=== PATIENT | female | born 1965 | race Hispanic/Latino ===

== ENCOUNTER 2021-07-09 15:30 | Emergency (ER) | payer SELFPAY ==
[2021-07-09] MEDS ORDERED: KETOROLAC 30 MG/ML INJ ONE (16:15)
--- OUTSIDE RECORDS SUMMARY | 2021-07-09 16:29 | XMS REPORT | Continuity of Care Document ---
:1965 Author Organization [facility] t Address [address] [place] [address] Care Team Providers Name Role Phone BENSON Attending Clinician Unavailable DR CARY Attending Clinician Unavailable BENSON Admitting Clinician Unavailable DR CARY Admitting Clinician Unavailable Payers Payer Name Policy Type Policy Number Effective Date Expiration Date S ource Problems Condition Condition Condition Status Onset Resolution Last Treating Co mments Source Name Details Category Date Date Treatment Clinician Date Malignant Malignant Problem Active [place] tumor of Tumor of 3-14 da breast Breast 00:00: [facility] Allergies, Adverse Reactions, Alerts This patient has no known allergies or adverse reactions. Social History Smoking Status Start Date Stop Date Source Never Smoker [facility] Medications Ordered Filled Start Stop Current Ordering Indication Dosage Frequency Signature Comments Components Source Medication Medication Date Date Medication? Clinician (SIG) Name Name prednisone prednisone No prednisone [place] 20 mg 20 mg 20 mg da tablet 60mg tablet 60mg tablet [facility] for 3 days, for 3 days, 60mg for 3 al 40mg for 3 40mg for 3 days, 40mg Health days, 20mg days, 20mg for 3 Ou treac for 3 days for 3 days days, 20mg h and 10mg and 10mg for 3 days P rogram for 3 days. for 3 days. and 10mg for 3 days. Vital Signs Vital Name Observation Time Observation Value Comments Source BP Diastolic 2019-07-11 00:00:00 94 mm[Hg] [facility] Height 2019-07-11 00:00:00 63 [facility] BMI (Body Mass 2019-07-11 00:00:00 26.7 kg/m2 [facility] of information [employer] [facility]) [facility] BP Systolic 2019-07-11 00:00:00 148 [facility]Hg[facility] Body Weight 2019-07-11 00:00:00 151 [facility]_av[facility] Procedures This patient has no known procedures. Plan of Care Planned Activity Planned Date Details Comments Source Diagnostic Test 2019-07-12 RPR (rapid plasma [place] [facility] Pending 00:00:00 reagin), serum Health Outrea ch [code = RPR (rapid Program plasma reagin), serum] Encounters Start End Encounter Admission Attending Care Care Encounter Source Date/Time Date/Time Type Type Clinicians Facility Department ID 2019-07-11 2019-07-11 Outpatient [facility] [id number] [place] 03:30:00 03:30:00 _[facility] 2019-07-11 2019-07-11 Flori A MAKEVAN [place] - [id number] 4 [place] 00:00:00 00:00:00 Veronica Plasencia PIPE PULLER: [address] [facility] SHADI [place], [facility] [id number] h , Ph. Program Results Test Description Test Time Test Comments Results Result Comments Source URINE CULTURE 2016-12-18 08:42:00 Test Item Value Reference Range Interpretation Comme nts Isolate 1 (test code = ISO1) Escherichia coli A ampicillin (test code = am) ug/mL R piperacillin/tazobactam (test code = tzp) ug/mL S cefazolin (test code = cz) ug/mL S ceftazidime (test code = shan) ug/mL S ceftriaxone1 (test code = ctr) ug/mL S cefepime (test code = fep) ug/mL S aztreonam (test code = azm) ug/mL S ertapenem (test code = etp) ug/mL S meropenem (test code = mem) ug/mL S gentamicin (test code = gm) ug/mL S tobramycin (test code = tob) ug/mL S levofloxacin (test code = lev) ug/mL S nitrofurantoin (test code = ftn) ug/mL S trimethoprim/sulfamethoxazole (test code = sxt) ug/mL R ALCOHOL BLOOD (ETOH) 2016-12-16 14:35:00 Test Item Value Reference Range Interpretation Comments ALCOHOL (test code = <10 mg/dL <=10 56A) Ref Range Change (test Please note the code = REF RANGE) change in reference range SALICYLATES WW2016-12-16 14:25:00 Test Item Value Reference Range Interpretation Comments SALICYLATE (test code = 94B) 4.7 mg/dL 2.8-20.0 ACETAMINOPHEN *WW*2016-12-16 14:24:00 Test Item Value Reference Range Interpretation Comments ACETAMINPH (test code = 94M) <2.0 ug/mL 10.0-30.0 L THYROID PANEL/SCREEN (TSH) *WW*2016-12-16 14:23:00 Test Item Value Reference Range Interpretation Comments TSH (test code = WTSH) 0.823 uIU/mL 0.358-3.740 COMPREHENSIVE METABOLIC CHAUDHARI *WW*2016-12-16 14:22:00 Test Item Value Reference Range Interpretation Comments GLUCOSE (test code = 06D) 97 mg/dL 75-100 SODIUM (test code = 01A) 137 mmol/L 136-145 POTASSIUM (test code = 01B) 3.6 mmol/L 3.6-5.1 CHLORIDE (test code = 04A) 102 mmol/L 98-107 CO2 (test code = 02A) 26 mmol/L 22-32 ANION GAP (test code = ANG) 12.6 mmol/L BUN (test code = 05D) 5 mg/dL 7-18 L CREATININE (test code = 03E) 0.8 mg/dL 0.4-1.1 BUN/CREA (test code = BCR) 6 12-20 L CALCIUM (test code = 09D) 9.1 mg/dL 8.3-9.5 BILI TOTAL (test code = 11A) 0.6 mg/dL 0.2-1.0 PROTEIN (test code = 07D) 8.6 g/dL 6.4-8.2 H ALBUMIN (test code = 08D) 4.5 g/dL 3.5-4.8 GLOBULIN (test code = GLB) 4.1 g/dL 1.5-3.8 H ALB/GLOB (test code = AGRR) 1.1 1.0-2.6 ALK PHOS (test code = 35A) 96 IU/L 42-121 AST (test code = 30A) 24 IU/L <=42 ALT (test code = 31A) 24 IU/L <=78 CARDIAC PROFILE *WW*2016-12-16 14:13:00 Test Item Value Reference Range Interpretation Comments TROPONIN I (test code = A84) <0.015 ng/mL 0.000-0.045 CKMB (test code = A49) 6.8 ng/mL <=3.6 HH CPK (test code = 32A) 346 IU/L 26-192 H PRO TIME AND PTT *WW*2016-12-16 14:08:00 Test Item Value Reference Range Interpretation Comments PT (test code = 12.2 s 9.8-13.6 TT) INR (test code = 1.1 INR) INRH (test code = SUGGESTED INRH) THERAPEUTIC RANGE FOR INR: 2.5 - 3.5 For Patients with Prosthetic Valves or Patients with recurrent Thromboembolic Events 2.0 - 3.0 For Most Other Applications PTT (test code = 29.0 s 20.2-38.0 PTT) PTTH (test code = To monitor the PTTH) effectiveness of heparin, we offer the Anti-Xa (Heparin Assay). It can be used for either unfractionated or LMW Heparin. Order Code is ANTI-XA AMYLASE AND LIPASE *WW*2016-12-16 14:06:00 Test Item Value Reference Range Interpretation Comments AMYLASE (test code = 10A) 47 U/L 28-100 LIPASE (test code = 60A) 129 IU/L 73-393 DRUGS OF ABUSE *WW*2016-12-16 14:05:00 Test Item Value Reference Range Interpretation Comments DRUG SCRN (test code URINE DRUG SCREEN = HDOA) This is an unconfirmed screening result and should not be used for non-medical purposes CANNABINOD (test code Negative NEGATIVE = 88C) AMPHETAMINE (test Negative NEGATIVE code = 84A) BENZODIAZP (test code Negative NEGATIVE = 86A) BARBITURAT (test code Negative NEGATIVE = 85A) OPIATES (test code = Negative NEGATIVE 92B) COCAINE (test code = POSITIVE NEGATIVE A 87A) PHENCYCLID (test code Negative NEGATIVE = 66A) METHADONE (test code Negative NEGATIVE = 64A) DOAH (test code = DOAH) *URINE DRUG SCREEN Cut-off values are as follows: Cannabinoids 50 ng/mL Cocaine 300 ng/mL Amphetamines 1000 ng/mL Phencyclidine 25 ng/mL Benzodiazepines 200 ng.mL Methadone 300 ng/mL Barbiturates 200 ng/mL Opiates 2000 ng/mL URINALYSIS WITH MICRO *WW*2016-12-16 14:00:00 Test Item Value Reference Range Interpretation Comments COLOR (test code = COLU) YELLOW YELLOW CLARITY (test code = CLA) SLT HAZY CLEAR A GLUCOSE UR (test code = UA NEGATIVE NEGATIVE GLUCOSE) BILI UR (test code = BILE) NEGATIVE NEGATIVE KETONES UR (test code = MIRIAM) NEGATIVE NEGATIVE SP GRAVITY (test code = SPGR) <=1.005 1.005-1.030 PH UR (test code = PH) 6.5 4.5-8.0 PROTEIN UR (test code = PU) NEGATIVE NEGATIVE UROBIL UR (test code = UROQ) 0.2 EU/dL 0.2-1.0 NITRITE UR (test code = NEGATIVE NEGATIVE NITRITE) BLOOD UR (test code = UA BLOOD) TRACE-INTACT NEGATIVE A LEUK ES UR (test code = LEUK) 3+ NEGATIVE A WBC UR (test code = UWBC) 20 /HPF 0-5 H RBC UR (test code = URBC) 8 /HPF 0-2 H EPITH UR (test code = UEPC) MODERATE /LPF FEW A BACTERIA UR (test code = UBACT) MANY /HPF NONE A CAST UR (test code = CAST) /LPF NONE CRYSTAL UR (test code = CRYU) / LPF NONE MUCUS UR (test code = MUC) / HPF NONE AMORPH UR (test code = FANNY) / HPF NONE TRICH UR (test code = UTRICH) /HPF NONE YEAST UR (test code = UY) /HPF NONE SPERM UR (test code = USPERM) /HPF NONE CBC (INCLUDES AUTOMATED DIFFERENTIAL)*[id number] 13:55:00 Test Item Value Reference Range Interpretation Comments WBC (test code = WBC) 11.9 10\S\3/uL 4.5-11.0 H RBC (test code = RBC) 4.55 10\S\6/uL 4.20-5.60 HGB (test code = HBG) 14.8 g/dL 12.0-15.5 HCT (test code = HCT) 41.9 % 35.0-44.0 MCV (test code = MCV) 92.1 fL 81.0-99.0 MCH (test code = MCH) 32.5 pg 27.0-31.0 H MCHC (test code = MCHC) 35.3 g/dL 32.0-36.0 RDW (test code = RDW) 12.1 % 11.5-14.5 PLT (test code = PLT) 204 10\S\3/uL 130-400 MPV (test code = MPV) 11.5 fL 9.4-12.4 NEUTROP # (test code = NE#) 8.7 10\S\3/uL 1.6-8.0 H LYMPH # (test code = LY#) 2.1 10\S\3/uL 1.1-3.5 MONOCYTE # (test code = MO#) 0.9 10\S\3/uL 0.0-1.1 EOSINOPH # (test code = EO#) 0.0 10\S\3/uL 0.0-0.7 BASOPHIL # (test code = BA#) 0.1 10\S\3/uL 0.0-0.3 IG # (test code = IG#) 0.07 10\S\3/uL 0.00-0.06 H NRBC # (test code = NRBC#) 0.00 10\S\3/uL 0.00-0.01 NEUTROPH % (test code = NE%) 73.3 % 35.0-73.0 H LYMPH % (test code = LY%) 17.4 % 20.0-55.0 L MONO % (test code = MO%) 7.8 % 2.5-10.0 EOSINOPH % (test code = EO%) 0.3 % 0.0-5.0 BASOPHIL % (test code = BA%) 0.6 % 0.0-2.0 IG % (test code = IG%) 0.6 % 0.0-0.8 NRBC% (test code = NRBC%) 0.0 % 0.0-0.2 MANDIFF (test code = WMDIFF) NO NO RBC MORPH (test code = NORMAL WRBCMOR)
--- NOTE | 2021-07-09 17:28 | RAD REPORT ---
EXAM DESCRIPTION: CT - Head Brain Wo Cont - 07/09/2021 5:19 pm CLINICAL HISTORY: PAIN COMPARISON: Facial Bones W/ Mpr dated 07/09/2021 TECHNIQUE: All CT scans are performed using dose optimization technique as appropriate and may inclu de automated exposure control or mA/KV adjustment according to patient size. FINDINGS: No intracranial hemorrhage, hydrocephalus or extra-axial fluid collection.No areas of brai n edema or evidence of midline shift. Trace right mastoid effusion. The calvarium is intact. Right forehead hematoma. IMPRESSION: No acute intracranial abnormality.
--- NOTE | 2021-07-09 17:30 | RAD REPORT ---
EXAM DESCRIPTION: CT - CTFB CLINICAL HISTORY: FACIAL PAIN COMPARISON: No comparisons TECHNIQUE: Axial 2 mm thick images of the face were obtained with sagittal and coronal reconstructio n images. All CT scans are performed using dose optimization technique as appropriate and may include automated exposure control or mA/KV adjustment according to patient size. FINDINGS: No acute facial bone fracture is seen.The mandible is intact. The globes and orbital contents are grossly unremarkable.The paranasal sinuses and mastoids are clear . Right forehead hematoma. IMPRESSION: Negative for facial bone fracture.
--- NOTE | 2021-07-09 17:43 | EDPHYS ---
Physician Documentation [facility] Name: Dot Pena Age: 55 yrs Sex: Female : 1965 Arrival Date: 07/09/2021 Time: 15:33 Bed 11 Private MD: ED Physician Jean Carlos Amin HPI: 07/09 16:05 This 55 yrs old Female presents to ER via Ambulatory with complaints of Fall pm1 Injury. 16:06 Details of fall: The patient fell from an upright position, while walking. Onset: The pm1 symptoms/episode began/occurred yesterday. Associated injuries: The patient sustained injury to the head, contusion, pain, swelling, right side of face. Severity of symptoms: in the emergency department the symptoms are unchanged. The patient has not experienced similar symptoms in the past. The patient has not recently seen a physician. Patient drank alcohol last night and fell asleep on the couch. Patient got up to go to restroom and fell on her right side of face. Patient presented with pain to right eye area and forehead. Negative for chest pain, shortness of breath, nausea vomiting diarrhea. Historical: - Allergies: 15:54 No Known Allergies; ww - Home Meds: 15:54 None [Active]; ww - PMHx: 15:54 breast cancer- right; ww - PSHx: 15:54 masectomy; ww - Immunization history: Last tetanus immunization: > 10 years ago. - Social history:: Smoking status: Patient denies any tobacco usage or history of. Patient uses alcohol, occasionally. ROS: 16:06 Constitutional: Negative for fever, chills, and weight loss. pm1 16:06 ENT: Negative for injury, pain, and discharge, Neck: Negative for injury, pain, and swelling, Cardiovascular: Negative for chest pain, palpitations, and edema, Respiratory: Negative for shortness of breath, cough, wheezing, and pleuritic chest pain, Abdomen/GI: Negative for abdominal pain, nausea, vomiting, diarrhea, and constipation, Back: Negative for injury and pain, MS/Extremity: Negative for injury and deformity, Skin: Negative for injury, rash, and discoloration, Neuro: Negative for headache, weakness, numbness, tingling, and seizure. 16:06 Eyes: Positive for pain, swelling, of the right eye. 16:06 All other systems are negative. Exam: 16:06 Constitutional: This is a well developed, well nourished patient who is awake, alert, pm1 and in no acute distress. 16:06 Back: No spinal tenderness. No costovertebral tenderness. Full range of motion. Skin: Warm, dry with normal turgor. Normal color with no rashes, no lesions, and no evidence of cellulitis. MS/ Extremity: Pulses equal, no cyanosis. Neurovascular intact. Full, normal range of motion. 16:06 Head/face: Noted is no obvious of injury or deformity except contusion, that is superficial, of the right eye, swelling, that is mild, of the right eye. 16:06 Eyes: Exam is negative for Periorbital structures: contusion, that is mild, on the inner aspect of right eyebrow, middle aspect of right eyebrow, outer aspect of right eyebrow, right supraorbital ridge, right upper eyelid and right lower eyelid, Pupils: no acute changes, Extraocular movements: no acute changes, Conjunctiva: no acute changes, no injection. 16:06 ENT: Exam is negative for acute changes, Mouth: no acute changes, Lips: normal, moist, Oral mucosa: normal, pink and intact, moist, Posterior pharynx: no acute changes. 16:06 Neck: Exam negative for External neck: no acute changes, C-spine: vertebral tenderness, is not appreciated. 16:06 Cardiovascular: Rate: normal, Rhythm: regular, Pulses: no pulse deficits are appreciated. 16:06 Respiratory: Exam negative for acute changes, respiratory distress, shortness of breath, Breath sounds: are clear throughout. 16:06 Abdomen/GI: Exam negative for acute changes, Inspection: abdomen appears normal, Palpation: abdomen is soft and non-tender, in all quadrants. 16:06 Neuro: Exam negative for acute changes, Orientation: is normal, Motor: is normal, moves all fours. Vital Signs: 15:48 BP 110 / 62; Pulse 88; Resp 18; Temp 99.0; Pulse Ox 100% ; Weight 63.5 kg; Height 5 ft. ww 3 in. (160.02 cm); Pain 9/10; 17:42 BP 107 / 61; Pulse 90; Resp 16; Pulse Ox 99% on R/A; ab2 15:48 Body Mass Index 24.80 (63.50 kg, 160.02 cm) Tejal Coma Score: 15:48 Eye Response: spontaneous(4). Verbal Response: oriented(5). Motor Response: obeys ww commands(6). Total: 15. 17:42 Eye Response: spontaneous(4). Verbal Response: oriented(5). Motor Response: obeys ab2 commands(6). Total: 15. Trauma Score (Adult): 15:48 Eye Response: spontaneous(1); Verbal Response: oriented(1); Motor Response: obeys ww commands(2); Systolic BP: > 89 mm Hg(4); Respiratory Rate: 10 to 29 per min(4); Orrum Score: 15; Trauma Score: 12 MDM: 16:00 Patient medically screened. pm1 17:26 Data reviewed: vital signs. Data interpreted: Pulse oximetry: on room air is 100 %. pm1 Interpretation: normal. 17:42 Counseling: I had a detailed discussion with the patient and/or guardian regarding: the pm1 historical points, exam findings, and any diagnostic results supporting the discharge/admit diagnosis, lab results, radiology results, the need for outpatient follow up, a family practitioner, to return to the emergency department if symptoms worsen or persist or if there are any questions or concerns that arise at home. 07/09 16:04 Order name: CT Head Brain wo Cont; Complete Time: 17:42 pm1 07/09 16:04 Order name: Facial Bones W/O Con CT; Complete Time: 17:42 pm1 Administered Medications: 16:05 CANCELLED (Physician Discretion): Ketorolac 30 mg IM once pm1 16:16 Drug: Ketorolac 60 mg Route: IM; Site: left ventrogluteal; ab2 17:44 Follow up: Response: No adverse reaction; Pain is decreased ab2 Disposition: 18:30 Co-signature as Attending Physician, Jean Carlos Amin MD I agree with the assessment and sharonda plan of care. Disposition Summary: 07/09/21 17:43 Discharge Ordered Location: Home pm1 Problem: new pm1 Symptoms: have improved pm1 Condition: Stable pm1 Diagnosis - Contusion of other part of head - right forehead contusion pm1 - Fall on same level, unspecified pm1 Followup: pm1 - With: Emergency Department - When: As needed - Reason: Worsening of condition Followup: pm1 - With: Private Physician - When: 2 - 3 days - Reason: Recheck today's complaints, Continuance of care, Re-evaluation by your physician Discharge Instructions: - Discharge Summary Sheet pm1 - Facial or Scalp Contusion pm1 - Fall Prevention in the Home, Adult pm1 Forms: - Medication Reconciliation Form pm1 - Thank You Letter pm1 - Antibiotic Education pm1 - Prescription Opioid Use pm1 Prescriptions: - Diclofenac Sodium 75 mg Oral tablet,delayed release (DR/EC) - take 1 tablet by ORAL route 2 times per day As needed; 30 tablet; Refills: 0, pm1 Product Selection Permitted Signatures: Dispatcher [employer] EDJean Carlos Landaverde MD MD cha Marinas, Patrick, MUSEUM HOST/HOSTESS MUSEUM HOST/HOSTESS pm1 Laura Browne RN RN Herve Cordova Corrections: (The following items were deleted from the chart) 15:55 15:54 PMHx: None; destiney cabello 16:05 16:04 Ketorolac 30 mg IM once ordered. pm1 pm1 17:26 17:26 Counseling: I had a detailed discussion with the patient and/or guardian pm1 regarding: the historical points, exam findings, and any diagnostic results supporting the discharge/admit diagnosis, lab results, radiology results, the need for outpatient follow up, for definitive care, a realtime court reporter, to return to the emergency department if symptoms worsen or persist or if there are any questions or concerns that arise at home, pm1
--- NOTE | 2021-07-09 17:43 | ER ---
Nurse's Notes [facility] Name: Dot Pena Age: 55 yrs Sex: Female : 1965 Arrival Date: 07/09/2021 Time: 15:33 Bed 11 Private MD: Diagnosis: Contusion of other part of head-right forehead contusion;Fall on same level, unspecified Presentation: 07/09 15:48 Chief complaint: Patient states: "Drunk last night and passed out on the couch and got ww up during the night to maybe go to the bathroom and fell". Patient fell on tile floor striking her right side of her face. Patient does not remember the fall or if the had any LOC. Complaining of headache and numbness to the right side of the face. Care prior to arrival: None. Mechanism of Injury: Fall from standing position. Trauma event details: Injury occurred: at home. Injury occurred: July 08, 2021. 15:48 Acuity: LEXIE 3 ww 15:48 Method Of Arrival: Ambulatory ww 15:54 Coronavirus screen: Client denies travel out of the [place] in the last 14 days. Ebola ww Screen: Patient denies travel to an Ebola-affected area in the 21 days before illness onset. Initial Sepsis Screen: Does the patient meet any 2 criteria? No. Patient's initial sepsis screen is negative. Does the patient have a suspected source of infection? No. Patient's initial sepsis screen is negative. Risk Assessment: Do you want to hurt yourself or someone else? Patient reports no desire to harm self or others. Onset of symptoms was July 08, 2021. Trauma Activation: Physician: ED Physician; Name: Brennan; Notified At: ; Arrived At: Physician: General Surgeon; Name: ; Notified At: ; Arrived At: Physician: Radiology; Name: ; Notified At: ; Arrived At: Physician: Respiratory; Name: ; Notified At: ; Arrived At: Physician: Lab; Name: ; Notified At: ; Arrived At: Historical: - Allergies: 15:54 No Known Allergies; ww - Home Meds: 15:54 None [Active]; ww - PMHx: 15:54 breast cancer- right; ww - PSHx: 15:54 masectomy; ww - Immunization history: Last tetanus immunization: > 10 years ago. - Social history:: Smoking status: Patient denies any tobacco usage or history of. Patient uses alcohol, occasionally. Screenin:48 Abuse screen: Denies threats or abuse. Denies injuries from another. Tuberculosis ww screening: No symptoms or risk factors identified. 16:18 Nutritional screening: No deficits noted. Fall Risk None identified. ab2 Primary Survey: 15:48 NO uncontrolled hemorrhage observed. A: The patient is alert. Breathing/Chest: ww Respiratory pattern: regular, Respiratory effort: spontaneous. Circulation: Heart tones present. Skin color: pink, Skin temperature: warm. Disability Alert. Exposure/Environment: Obvious injury(ies) are noted at this time: bruising and swelling to the right eye and forehead. 16:18 Reassessment Breathing/Chest Respiratory pattern Regular Respiratory effort Spontaneous ab2 Unlabored Breath sounds Clear Chest inspection Symmetrical. Assessment: 15:48 General: Appears in no apparent distress. Behavior is flat. Pain: Complains of pain in ww forehead, right eye, right cheek and right jaw. Neuro: Level of Consciousness is awake, alert, obeys commands, Oriented to person, place, time, situation, Gait is unsteady, Speech is normal. EENT: Lid(s) swelling to right eye lid. Cardiovascular: Patient's skin is warm and dry. Respiratory: Airway is patent Respiratory effort is even, unlabored, Respiratory pattern is regular, symmetrical. GI: No signs and/or symptoms were reported involving the gastrointestinal system. : No signs and/or symptoms were reported regarding the genitourinary system. 16:18 Derm: Bruising that is dark purple, on right eye. ab2 17:42 Reassessment: Patient appears in no apparent distress at this time. Pt resting in bed, ab2 awaiting results for ct. Pt denies any needs at this time. Vital Signs: 15:48 BP 110 / 62; Pulse 88; Resp 18; Temp 99.0; Pulse Ox 100% ; Weight 63.5 kg; Height 5 ft. ww 3 in. (160.02 cm); Pain 9/10; 17:42 BP 107 / 61; Pulse 90; Resp 16; Pulse Ox 99% on R/A; ab2 15:48 Body Mass Index 24.80 (63.50 kg, 160.02 cm) ww [place] Coma Score: 15:48 Eye Response: spontaneous(4). Verbal Response: oriented(5). Motor Response: obeys ww commands(6). Total: 15. 17:42 Eye Response: spontaneous(4). Verbal Response: oriented(5). Motor Response: obeys ab2 commands(6). Total: 15. Trauma Score (Adult): 15:48 Eye Response: spontaneous(1); Verbal Response: oriented(1); Motor Response: obeys ww commands(2); Systolic BP: > 89 mm Hg(4); Respiratory Rate: 10 to 29 per min(4); Tejal Score: 15; Trauma Score: 12 ED Course: 15:33 Patient arrived in ED. ds1 15:51 Triage completed. ww 15:54 Arm band placed on right wrist. ww 15:56 Tylor Casper NP is PHCP. pm1 15:56 Jean Carlos Amin MD is Attending Physician. pm1 16:12 Herve Hernandez is Primary Nurse. ab2 16:18 Patient has correct armband on for positive identification. Bed in low position. Call ab2 light in reach. Side rails up X2. Adult w/ patient. 16:18 No provider procedures requiring assistance completed. ab2 16:18 Patient maintains SpO2 saturation greater than 95% on room air. Thermoregulation: warm ab2 blanket given to patient. 17:18 Facial Bones W/O Con CT In Process Unspecified. EDMS 17:19 CT Head Brain wo Cont In Process Unspecified. EDMS 17:50 Patient did not have IV access during this emergency room visit. ww Administered Medications: 16:05 CANCELLED (Physician Discretion): Ketorolac 30 mg IM once pm1 16:16 Drug: Ketorolac 60 mg Route: IM; Site: left ventrogluteal; ab2 17:44 Follow up: Response: No adverse reaction; Pain is decreased ab2 Outcome: 17:43 Discharge ordered by MD. pm1 17:49 Discharged to home ambulatory, with family. ww 17:49 Condition: stable 17:50 Patient's length of stay was not longer than 2 hours. ww 17:50 Discharge instructions given to patient, Instructed on discharge instructions, follow ww up and referral plans. no drinking with medication, medication usage, safety practices, Demonstrated understanding of instructions, follow-up care, medications, Prescriptions given X 1. 17:51 Patient left the ED. ww Signatures: Dispatcher [employer] EDMS Stephanie Quan ds1 Tylor Casper, GUSTAVO [employer] GROOMER pm1 Laura Browne, RN RN ww Herve Hernandez ab2 Corrections: (The following items were deleted from the chart) 15:55 15:54 PMHx: None; ww ww
[2021-07-09 18:09] VITALS: TEMP 99
[2021-07-09 18:10] VITALS: BP 107/61; O2SAT 99
== END 2021-07-09 17:51 | disposition home or self-care (01) ==
LOC: ER 15:30
DX: S00.83XA Contusion of other part of head, initial encounter (principal); W18.30XA Fall on same level, unspecified, initial encounter; Y93.01 Activity, walking, marching and hiking; Z85.3 Personal history of malignant neoplasm of breast; Z90.11 Acquired absence of right breast and nipple
CPT/HCPCS: 70450; 70486; 76377; 96372; 99284